=== PATIENT | female | born 1965 | race Caucasian/White ===

== ENCOUNTER 2017-04-23 22:28 | Emergency (ER) | payer BC ==
[2017-04-23 22:43] VITALS: BP 149/98
[2017-04-23] MEDS ORDERED: methylPREDNISolone Sodium Succinate 125 MG/2 ML SDV IM ONE (22:56)
--- NOTE | 2017-04-23 23:03 | EDM.PDOC ---
ED HPI GENERAL MEDICAL PROBLEM - General Chief Complaint: Allergic Reaction Stated Complaint: HIVES Time Seen by Provider: 04/23/17 22:56 Source of Information: Reports: Patient History Limitations: Reports: No Limitations - History of Present Illness INITIAL COMMENTS - FREE TEXT/NARRATIVE: developed hives after IV contrast, been taking benadryl but not helping. Generalized Pain Score (Numeric/FACES): 3 - Related Data Allergies Allergy/AdvReac Type Severity Reaction Status Date / Time ketorolac Allergy Itching Verified 04/23/17 22:38 latex Allergy Itching Verified 04/23/17 22:38 ISOVUE 300 Allergy Hives Uncoded 04/23/17 22:38 Home Meds: Home Meds Estradiol [Estradiol] 0.25 mg PO DAILY 10/09/14 [History] Propranolol [Inderal LA] 120 mg PO DAILY 10/09/14 [History] Calcium Carbonate [Calcium] 500 mg PO DAILY 10/10/14 [History] Fexofenadine [Palak] 180 mg PO DAILY 10/10/14 [History] Multivitamin [One Daily Multivitamin] 1 each PO DAILY 10/10/14 [History] Doxycycline Monohydrate [Doxycycline Monohydrate] 100 mg PO BID 04/23/17 [ History] Past Medical History HEENT History: Reports: Impaired Vision Other HEENT History: wears corrective lenses Cardiovascular History: Reports: Other (See Below) Other Cardiovascular History: SVT. 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: Endometriosis Musculoskeletal History: Reports: None Neurological History: Reports: Migraines Other Neuro History: not requiring treatment Psychiatric History: Reports: None Endocrine/Metabolic History: Reports: None Hematologic History: Reports: Transfusion Reaction Immunologic History: Reports: None Oncologic (Cancer) History: Reports: None Dermatologic History: Reports: None - Infectious Disease History Infectious Disease History: Reports: Chicken Pox - Past Surgical History Head Surgeries/Procedures: Reports: None HEENT Surgical History: Reports: Adenoidectomy, Tonsillectomy Cardiovascular Surgical History: Reports: None Respiratory Surgical History: Reports: None GI Surgical History: Reports: Cholecystectomy Female Surgical History: Reports: Hysterectomy Endocrine Surgical History: Reports: None Neurological Surgical History: Reports: None Oncologic Surgical History: Reports: Biopsy of Breast Dermatological Surgical History: Reports: None Social & Family History - Family History Family Medical History: Noncontributory - Tobacco Use Smoking Status *Q: Never Smoker Second Hand Smoke Exposure: No - Caffeine Use Caffeine Use: Reports: None - Recreational Drug Use Recreational Drug Use: No ED ROS ALLERGIC REACTION - Review of Systems Review Of Systems: ROS reveals no pertinent complaints other than HPI. ED EXAM GENERAL NO PERIP PULSE - Physical Exam Exam: See Below Exam Limited By: No Limitations General Appearance: Alert, WD/WN, Anxious, Mild Distress Ears: Hearing Grossly Normal Throat/Mouth: Normal Voice, No Airway Compromise Head: Atraumatic Neck: Non-Tender, Full Range of Motion Respiratory/Chest: No Respiratory Distress, Lungs Clear, Normal Breath Sounds, No Accessory Muscle Use Cardiovascular: Regular Rate, Rhythm GI/Abdominal: Soft, Non-Tender Neurological: Alert, Oriented, Normal Cognition, Normal Gait, No Motor/Sensory Deficits Psychiatric: Anxious Skin Exam: Warm, Dry, Normal Color, Rash Lymphatic: No Adenopathy Course - Vital Signs Last Recorded V/S: Last Vital Signs Temp 36.4 C 04/23/17 22:39 Pulse 76 04/23/17 22:39 Resp 16 04/23/17 22:39 BP 149/98 H 04/23/17 22:39 Pulse Ox 97 04/23/17 22:39 - Orders/Labs/Meds Orders: Active Orders 24 hr Category Date Time Status methylPREDNISolone Sod Succ [Solu-MEDROL] Med 04/23/17 22:56 Once 125 mg IM ONETIME ONE Departure - Departure Time of Disposition: 22:58 Disposition: Home, Self-Care 01 Condition: Good Clinical Impression: Allergic reaction caused by a drug Qualifiers: Encounter type: initial encounter Qualified Code(s): T78.40XA - Allergy, unspecified, initial encounter - Discharge Information Instructions: Angioedema, [id number] Additional Instructions: 1) continue taking two benadryl 25mg at 2 to 3 times daily for itchy rash 2) follow up at clinic or recheck if there is any change or concern rx given; medrol dospak - My Orders Last 24 Hours: My Active Orders 04/23/17 22:56 methylPREDNISolone Sod Succ [Solu-MEDROL] 125 mg IM ONETIME ONE - Assessment/Plan Last 24 Hours: My Active Orders 04/23/17 22:56 methylPREDNISolone Sod Succ [Solu-MEDROL] 125 mg IM ONETIME ONE
== END 2017-04-23 23:11 | disposition home or self-care (01) ==
LOC: DL.ED 22:28
DX: L50.0 Allergic urticaria (principal); T50.8X5A Adverse effect of diagnostic agents, initial encounter; Z91.040 Latex allergy status; Z88.6 Allergy status to analgesic agent; Z79.899 Other long term (current) drug therapy; Z98.890 Other specified postprocedural states; Z90.710 Acquired absence of both cervix and uterus; Z90.49 Acquired absence of other specified parts of digestive tract; R10.30 Lower abdominal pain, unspecified; R19.5 Other fecal abnormalities
CPT/HCPCS: 74177; 96372; 99283; J1200; J2930; Q9967

== ENCOUNTER 2021-01-31 22:31 | Emergency (ER) | payer BC ==
[2021-01-31 23:05] VITALS: BP 150/83; PULSE 89
--- NOTE | 2021-01-31 23:49 | EDM.PDOC ---
ED HPI GENERAL MEDICAL PROBLEM - General Chief Complaint: Upper Extremity Injury/Pain Stated Complaint: SHOULDER PAIN, VOMITING Time Seen by Provider: 01/31/21 23:00 Source of Information: Reports: Patient, Family (), RN, RN Notes Reviewed History Limitations: Reports: No Limitations - History of Present Illness INITIAL COMMENTS - FREE TEXT/NARRATIVE: Abdiel is a 55 y/o female who presents to the ED via personal vehicle with complaints of abrupt onset pain in her right posterior forearm and right posterior upper arm. The patient states the new pain began while she was at home sitting in a chair. She characterizes the pain as a constant sharp, burn that is exacerbated by movement. She denies recent or past injury or trauma to the extremity. She does attest to history of bilateral carpal tunnel surgery from which she recovered without complication. She has taken one dose of Tylenol 1gm which provided [id number] alleviation of pain. Additionally, she attempted to apply BioFreeze which offered her no alleviation of pain. 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 LOGISTICS ANALYST: Reports: Acetaminophen, Heat Therapy Right Arm Pain Score (Numeric/FACES): 9 - Related Data Allergies Allergy/AdvReac Type Severity Reaction Status Date / Time ketorolac Allergy Itching Verified 05/14/20 09:47 latex Allergy Itching Verified 05/14/20 09:47 ISOVUE 300 Allergy Hives Uncoded 05/14/20 09:47 Home Meds: Home Meds Fexofenadine [Palak] 180 mg PO DAILY PRN 10/10/14 [History] Multivitamin [One Daily Multivitamin] 1 each PO DAILY 10/10/14 [History] Albuterol [Take Home: Albuterol 18 GM, 1 INH Pack] 2 puff IH Q6HR PRN 05/14/20 [History] Citalopram Hydrobromide [Celexa] 10 mg PO DAILY 05/14/20 [History] Isosorbide Mononitrate [Imdur] 30 mg PO DAILY 05/14/20 [History] Potassium Chloride [Klor-Con] 20 meq PO TID 05/14/20 [History] dilTIAZem HCL [Diltiazem 24Hr ER (Cd)] 240 mg PO DAILY 05/14/20 [History] hydroCHLOROthiazide [Hydrochlorothiazide] 25 mg PO DAILY 05/14/20 [History] Past Medical History HEENT History: Reports: Impaired Vision Other HEENT History: wears corrective lenses Cardiovascular History: Reports: Other (See Below) Other Cardiovascular History: SVT. 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 Musculoskeletal History: Reports: None Neurological History: Reports: Migraines Other Neuro History: not requiring treatment Psychiatric History: Reports: None Endocrine/Metabolic History: Reports: None Hematologic History: Reports: Transfusion Reaction Immunologic History: Reports: None Oncologic (Cancer) History: Reports: None Dermatologic History: Reports: None - Infectious Disease History Infectious Disease History: Reports: Chicken Pox - Past Surgical History Head Surgeries/Procedures: Reports: None HEENT Surgical History: Reports: Adenoidectomy, Tonsillectomy Cardiovascular Surgical History: Reports: None Respiratory Surgical History: Reports: None GI Surgical History: Reports: Cholecystectomy Female Surgical History: Reports: Hysterectomy Endocrine Surgical History: Reports: None Neurological Surgical History: Reports: None Oncologic Surgical History: Reports: Biopsy of Breast Dermatological Surgical History: Reports: None Social & Family History - Family History Family Medical History: No Pertinent Family History - Tobacco Use Tobacco Use Status *Q: Never Tobacco User - Caffeine Use Caffeine Use: Reports: None - Recreational Drug Use Recreational Drug Use: No Review of Systems - Review of Systems Review Of Systems: Comprehensive ROS is negative, except as noted in HPI. ED EXAM, GENERAL - Physical Exam Exam: See Below Exam Limited By: No Limitations General Appearance: Alert, No Apparent Distress Nose: Normal Inspection, Normal Mucosa, No Blood Throat/Mouth: Normal Inspection, Normal Oropharynx, Normal Voice, No Airway Compromise Head: Atraumatic, Normocephalic Neck: Supple, Full Range of Motion, Tender Lateral (To right upper back). No: Lymphadenopathy (L), Lymphadenopathy (R), Tender Midline Respiratory/Chest: No Respiratory Distress, Lungs Clear, Normal Breath Sounds, No Accessory Muscle Use, Chest Non-Tender Cardiovascular: Normal Peripheral Pulses, Regular Rate, Rhythm, No Edema, No Gallop, No JVD, No Murmur, No Rub Peripheral Pulses: 2+: Radial (L), Radial (R) Back Exam: Full Range of Motion, Paraspinal Tenderness (To right upper back) Extremities: Normal Range of Motion, No Pedal Edema, Normal Capillary Refill, Arm Pain (To posterior upper arm and forearm; Skin C/D/I with no evidence of trauma or deformity). No: Joint Swelling, Increased Warmth, Mottled, Pallor, Redness Neurological: Alert, Oriented, CN II-XII Intact, Normal Cognition, Normal Gait, Normal Reflexes, No Motor/Sensory Deficits Psychiatric: Normal Affect, Normal Mood Skin Exam: Warm, Dry, Intact, Normal Color, No Rash. No: Ecchymosis, Jaundice, Mottled, Pallor, Petechiae Course - Vital Signs Last Recorded V/S: Last Vital Signs Temp 98.5 F 01/31/21 22:45 Pulse 89 01/31/21 22:45 Resp 18 01/31/21 22:45 BP 150/83 H 01/31/21 22:45 Pulse Ox 96 01/31/21 22:45 - Orders/Labs/Meds Meds: Medications Discontinued Medications Generic Name Dose Route Start Last Admin Trade Name Freq PRN Reason Stop Dose Admin Cyclobenzaprine HCl 10 mg 02/01/21 00:33 02/01/21 00:59 Cyclobenzaprine 10 Mg Tab PO 02/01/21 00:34 10 mg ONETIME ONE Administration Methylprednisolone Sodium Succinate 125 mg 02/01/21 00:41 02/01/21 00:59 Methylprednisolone Sodium Succinate 125 Mg/2 Ml Sdv IM 02/01/21 00:42 125 mg ONETIME ONE Administration Ondansetron HCl 4 mg 01/31/21 23:51 02/01/21 00:05 Ondansetron 4 Mg Tab.Dis PO 01/31/21 23:52 4 mg ONETIME ONE Administration Tramadol HCl 50 mg 01/31/21 23:51 02/01/21 00:05 Tramadol 50 Mg Tab PO 01/31/21 23:52 50 mg ONETIME ONE Administration - Radiology Interpretation Free Text/Narrative:: PROCEDURE INFORMATION: Exam: XR Cervical Spine Exam date and time: 01/31/2021 11:53 PM Age: 55 years old Clinical indication: Other: Pain no trauma; Additional info: R/O cervical stenosis; Pain and tingling in rue TECHNIQUE: Imaging protocol: XR of the cervical spine. Views: 2 or 3 views. COMPARISON: No relevant prior studies available. FINDINGS: Bones/joints: Near anatomic alignment. Mild narrowing C5-C6 disc , moderate narrowing C6-C7 disc. Moderate anterior and posterior osteophytes noted at C6-C7.. Facets appropriately oriented. Mild facet disease throughout. Soft tissues: There is no soft tissue abnormality seen. Lungs: The visualized portions of the lung apices are normal. IMPRESSION: 1. Degenerative changes as described, most severe at C6-C7. Thank you for allowing us to participate in the care of your patient. Dictated and Authenticated by: Volodymyr Jean MD 02/01/2021 12:36 AM Central Time ([place] & [place]) - Re-Assessments/Exams Free Text/Narrative Re-Assessment/Exam: 01/31/21 Xray of cervical spine obtained. Zofran and Ultram administered. Xray of cervical spine reveals mild narrowing at C5-C6 and moderate narrowing a C6-C7. Will treat with cyclobenzaprine and Solu-Medrol IM. Supportive cares for cervical radiculopathy reviewed, as well as ongoing follow-up. Red flag signs and symptoms which would warrant reevaluation reviewed. Patient and verbalized understanding and agreement with the plan of care. Departure - Departure Time of Disposition: 00:49 Disposition: Home, Self-Care 01 Condition: Good Clinical Impression: Cervical radiculopathy at C7, Cervical radiculopathy at C6, Right arm pain Cervical spine degeneration Qualifiers: Spinal osteoarthritis complication: with radiculopathy Qualified Code(s): M47.22 - Other spondylosis with radiculopathy, cervical region - Discharge Information *PRESCRIPTION DRUG MONITORING PROGRAM REVIEWED*: Not Applicable *COPY OF PRESCRIPTION DRUG MONITORING REPORT IN PATIENT HOWARD: Not Applicable Instructions: Cervical Radiculopathy, [id number] Referrals: PCP,None [Primary Care Provider] - Forms: ED Department Discharge Additional Instructions: Rx: prednisone Rx: cyclobenzaprine 1.) Follow up with your primary care provider regarding today's visit. 2.) You may use acetaminophen (Tylenol) 1gm, every six hours, as pain persists. 3.) You may continue applying BioFreeze - to your right neck/upper back, less so on your arms 4.) Follow up with primary care, or return to the emergency department, with any worsening of symptoms or loss of motor function to the right arm. Sepsis Event Note (ED) - Evaluation Sepsis Screening Result: No Definite Risk - Focused Exam Vital Signs: Vital Signs Temp Pulse Resp BP Pulse Ox 01/31/21 22:45 98.5 F 89 18 150/83 H 96
[2021-01-31] MEDS ORDERED: traMADol 50 MG Tab PO ONE (23:51)
[2021-01-31] MEDS ORDERED: Ondansetron 4 MG Tab.DIS PO ONE (23:51)
[2021-02-01] MEDS ORDERED: Cyclobenzaprine 10 MG Tab PO ONE (00:33)
--- NOTE | 2021-02-01 00:36 | CR ---
PROCEDURE INFORMATION: Exam: XR Cervical Spine Exam date and time: 01/31/2021 11:53 PM Age: 55 years old Clinical indication: Other: Pain no trauma; Additional info: R/O cervical stenosis; Pain and tingling in rue TECHNIQUE: Imaging protocol: XR of the cervical spine. Views: 2 or 3 views. COMPARISON: No relevant prior studies available. FINDINGS: Bones/joints: Near anatomic alignment. Mild narrowing C5-C6 disc , moderate narrowing C6-C7 disc. Moderate anterior and posterior osteophytes noted at C6-C7.. Facets appropriately oriented. Mild facet disease throughout. Soft tissues: There is no soft tissue abnormality seen. Lungs: The visualized portions of the lung apices are normal. IMPRESSION: 1. Degenerative changes as described, most severe at C6-C7.
[2021-02-01] MEDS ORDERED: methylPREDNISolone Sodium Succinate 125 MG/2 ML SDV IM ONE (00:41)
== END 2021-02-01 01:09 | disposition home or self-care (01) ==
LOC: DL.ED 22:31
DX: M47.22 Other spondylosis with radiculopathy, cervical region (principal); M79.631 Pain in right forearm; Z88.8 Allergy status to other drugs, medicaments and biological substances; Z91.040 Latex allergy status; Z79.899 Other long term (current) drug therapy
CPT/HCPCS: 72040; 96372; 99283; A9270; J2930

== ENCOUNTER 2022-06-17 10:02 | Emergency (ER) | payer BC ==
[2022-06-17] MEDS ORDERED: Aspirin 81 MG Tab.Chew PO ONE (10:50)
== END 2022-06-17 12:45 | disposition home or self-care (01) ==
LOC: DL.ED 10:02
DX: R07.89 Other chest pain (principal); I10 Essential (primary) hypertension
CPT/HCPCS: 36415; 84484; 93005; 99285; A9270

== ENCOUNTER 2023-05-22 06:28 | Day surgery (SDC) | payer BC ==
[2023-05-22] MEDS ORDERED: Dextrose 5%-0.45% NaCl 1,000 ML IV SCH (06:30)
[2023-05-22] MEDS ORDERED: fentaNYL 100 MCG/2 ML SDV ONE (07:36)
[2023-05-22] MEDS ORDERED: Midazolam 1 MG/ML 2 ML SDV ONE (07:36)
[2023-05-22] MEDS ORDERED: fentaNYL 100 MCG/2 ML SDV IV ONE ×2 (07:40→07:41)
[2023-05-22] MEDS ORDERED: Midazolam 1 MG/ML 2 ML SDV IV ONE ×2 (07:41→07:42)
[2023-05-22 09:07] VITALS: BP 119/65; PULSE 80
== END 2023-05-22 09:21 | disposition home or self-care (01) ==
LOC: DL.ENDO 06:28
PROVIDERS: ATTEND Internal Medicine Gastroenterology
DX: K29.50 Unspecified chronic gastritis without bleeding (principal); I10 Essential (primary) hypertension; F32.A Depression, unspecified; E78.5 Hyperlipidemia, unspecified; J45.909 Unspecified asthma, uncomplicated; N32.81 Overactive bladder; Z98.890 Other specified postprocedural states; Z88.8 Allergy status to other drugs, medicaments and biological substances; Z91.040 Latex allergy status
CPT/HCPCS: 43239; 87077; J2250; J3010; J7042